=== PATIENT | female | born 1960 | race Caucasian/White ===

== ENCOUNTER 2017-02-27 18:44 | Emergency (ER) | payer OTHER ==
[~2017-02-27] VITALS: Ht 167.6 cm; Wt 70.0 kg
[2017-02-27 19:19] VITALS: BP 134/75; PULSE 71; RESP 16; TEMP 97.9; O2SAT 98
[2017-02-27] MEDS ORDERED: ALPR.5 PO (19:26)
[2017-02-27] MEDS ORDERED: PRAV10TA PO (19:26)
[2017-02-27] MEDS ORDERED: LEXA5TAB PO (19:26)
[2017-02-27] MEDS ORDERED: NALT50TA3 PO (19:26)
[2017-02-27] MEDS ORDERED: TRAZ50TA12 PO (19:26)
--- NOTE | 2017-02-27 19:26 | PD ---
HPI Chief Complaint: Psychiatric Symptoms Time Seen by Provider: 19:18 Travel History International Travel<30 days: No Contact w/Intl Traveler<30days: No Traveled to known affect area: No History of Present Illness HPI The patient was seen and examined in the presence of the nurse. This patient presents under police Pitt act. She says that she consumes large amounts of alcohol daily. Denies any other illicit drug use. Her neighbor called the police due to her acting intoxicated. According to the police Pitt act, she made statements to the effect that she wanted to drink so much in order to hurt herself. She denies feeling suicidal now. Symptoms moderately severe. No alleviating factors. Duration 2 hours PFSH Social History Alcohol Use: Yes Tobacco Use: Yes Substance Use: No Allergies-Medications (Allergen,Severity, Reaction): Coded Allergies: No Known Allergies (Unverified , 02/27/17) Reported Meds & Prescriptions Reported Meds & Active Scripts Active Reported Xanax (Alprazolam) 0.5 Mg Tab 0.5 Mg PO Q6H PRN Naltrexone (Naltrexone HCl) 50 Mg Tab 50 Mg PO DAILY Lexapro (Escitalopram Oxalate) 5 Mg Tab 5 Mg PO DAILY Pravastatin 10 Mg Tab 10 Mg PO DAILY Trazodone (Trazodone HCl) 50 Mg Tab 25 Mg PO HS Review of Systems General / Constitutional: No: Fever Eyes: No: Visual changes HENT: No: Headaches Cardiovascular: No: Chest Pain or Discomfort Respiratory: No: Shortness of Breath Gastrointestinal: No: Abdominal Pain Genitourinary: No: Dysuria Musculoskeletal: No: Pain Skin: No Rash Neurologic: No: Weakness Psychiatric: Positive: Depression, Suicidal Ideations, Substance Abuse Endocrine: No: Polydipsia Hematologic/Lymphatic: No: Easy Bruising Physical Exam Narrative GENERAL: Disheveled , well-developed patient who is acting intoxicated . SKIN: Focused skin assessment reveals no rash and nodules. Skin is Warm and dry. HEAD: Atraumatic. Normocephalic. EYES: Pupils equal and round. No scleral icterus. No injection or drainage. ENT: No nasal bleeding or discharge. Mucous membranes pink and moist. NECK: Trachea midline. No JVD. CARDIOVASCULAR: Regular rate and rhythm. No murmur appreciated. RESPIRATORY: No accessory muscle use. Clear to auscultation. Breath sounds equal bilaterally. GASTROINTESTINAL: Abdomen soft, non-tender, nondistended. Hepatic and splenic margins not palpable. MUSCULOSKELETAL: No obvious deformities. No clubbing. No cyanosis. No edema. NEUROLOGICAL: Awake and alert. No obvious cranial nerve deficits. Motor grossly within normal limits. Slight slurring of speech. PSYCHIATRIC: Very animated mood and affect; insight and judgment poor . Data Data Last Documented VS Vital Signs Date Time Temp Pulse Resp B/P Pulse Ox O2 Delivery O2 Flow Rate FiO2 02/27/17 19:19 97.9 71 16 134/75 98 Orders Complete Blood Count With Diff (02/27/17 19:21) Basic Metabolic Panel (Bmp) (02/27/17 19:21) Valproic Acid (Depakene) (02/27/17 19:21) Psych Screen (02/27/17 19:21) Drug Screen, Random Urine (02/27/17 19:21) Alcohol (Ethanol) (02/27/17 19:21) Restraints Non-Violent BLANQUITA.Q3H (02/27/17 20:25) Lorazepam Inj (Ativan Inj) (02/27/17 20:45) Lorazepam Inj (Ativan Inj) (02/27/17 20:45) Labs Laboratory Tests Test 02/27/17 19:25 White Blood Count 4.2 TH/MM3 Red Blood Count 4.03 MIL/MM3 Hemoglobin 13.1 GM/DL Hematocrit 37.7 % Mean Corpuscular Volume 93.5 FL Mean Corpuscular Hemoglobin 32.5 PG Mean Corpuscular Hemoglobin 34.8 % Concent Red Cell Distribution Width 13.5 % Platelet Count 218 TH/MM3 Mean Platelet Volume 7.3 FL Neutrophils (%) (Auto) 45.9 % Lymphocytes (%) (Auto) 41.1 % Monocytes (%) (Auto) 12.4 % Eosinophils (%) (Auto) 0.4 % Basophils (%) (Auto) 0.2 % Neutrophils # (Auto) 1.9 TH/MM3 Lymphocytes # (Auto) 1.7 TH/MM3 Monocytes # (Auto) 0.5 TH/MM3 Eosinophils # (Auto) 0.0 TH/MM3 Basophils # (Auto) 0.0 TH/MM3 CBC Comment DIFF FINAL Differential Comment Sodium Level 139 MEQ/L Potassium Level 3.9 MEQ/L Chloride Level 100 MEQ/L Carbon Dioxide Level 28.5 MEQ/L Anion Gap 11 MEQ/L Blood Urea Nitrogen 7 MG/DL Creatinine 0.65 MG/DL Estimat Glomerular Filtration 95 ML/MIN Rate Random Glucose 88 MG/DL Calcium Level 8.4 MG/DL Urine Opiates Screen NEG Urine Barbiturates Screen NEG Valproic Acid (Depakene) Level 46 MCG/ML Urine Amphetamines Screen NEG Urine Benzodiazepines Screen NEG Urine Cocaine Screen NEG Urine Cannabinoids Screen NEG Ethyl Alcohol Level 412 MG/DL MDM Medical Decision Making Medical Screen Exam Complete: Yes Emergency Medical Condition: Yes Medical Record Reviewed: Yes Differential Diagnosis Alcohol intoxication, adjustment disorder, depression, suicidal ideation Narrative Course I have reviewed the patient's electronic medical record. Patient has no prior ER visits here I've ordered psychiatric evaluation as she is here under the Pitt act. Toxicology screen is negative Alcohol level is 412 CBC is normal Metabolic profile is normal Patient will have a lot of sobering up to do. She is quite intoxicated. I had to give her injection of 2 mg IM Ativan as she was so out of control. She also required leather restraints for her own safety. She will be given some sobering up time and then will get psychiatric evaluation. She is is medically stable as can be made. Disposition will be per psychiatry after sobering up and screening. Diagnosis Primary Impression: Suicidal ideation Additional Impression: Alcohol intoxication in active alcoholic Qualified Code: F10.220 - Alcohol intoxication in active alcoholic, uncomplicated Joaquin Preciado MD Feb 27, 2017 19:26
[2017-02-27 20:31] LABS: AUTOMATED NEUTROPHIL # 1.9 TH/MM3 (1.8-7.7); BASOPHIL % 0.2 % (0.0-2.0); EOSINOPHIL % 0.4 % (0.0-4.0); HEMATOCRIT 37.7 % (35.0-46.0); HEMO FLAGS DIFF FINAL; LYMPH % 41.1 % (9.0-44.0); LYMPHOCYTE # 1.7 TH/MM3 (1.0-4.8); MEAN CELL VOLUME 93.5 FL (80.0-100.0); MEAN CORPUSCULAR HEMOGLOBIN 32.5 PG (27.0-34.0); MEAN CORPUSCULAR HGB CONC 34.8 % (32.0-36.0); MONO % 12.4 % (0.0-8.0); NEUT % 45.9 % (16.0-70.0); PLATELET COUNT 218 TH/MM3 (150-450); RED BLOOD COUNT 4.03 MIL/MM3 (4.00-5.30); RED CELL DISTRIBUTION WIDTH 13.5 % (11.6-17.2); WHITE BLOOD COUNT 4.2 TH/MM3 (4.0-11.0)
[2017-02-27 20:43] LABS: AMPHETAMINE, URINE NEG (NEG); BARBITURATES, URINE NEG (NEG); COCAINE, URINE NEG (NEG)
[2017-02-27] MEDS ORDERED: LORazepam 2 MG/ML VIAL IV PUSH ONE (20:45)
[2017-02-27] MEDS ORDERED: LORazepam 2 MG/ML VIAL IM ONE (20:45)
[2017-02-27 20:55] LABS: BICARBONATE 28.5 MEQ/L (21.0-32.0); POTASSIUM 3.9 MEQ/L (3.5-5.1)
[2017-02-27 21:30] VITALS: BP 144/85; PULSE 95; RESP 18; O2SAT 97
[2017-02-28 06:01] VITALS: BP 126/72; PULSE 97; RESP 19; O2SAT 94
[2017-02-28] MEDS ORDERED: LORazepam 2 MG TAB PO ONE (10:00)
[2017-02-28 10:09] VITALS: BP 139/90; PULSE 113; TEMP 98.6; O2SAT 95
--- NOTE | 2017-02-28 14:44 | PD ---
History of Present Illness Chief Complaint: Psychiatric Symptoms Time Seen by Provider: 14:15 Travel History International Travel<30 Days: No Contact w/Intl Traveler<30days: No Known affected area: No Legal Status Legal Status: Pitt Act Pitt Act Signed By: Edith Groves History of Present Illness: History of Present Illness HPI The patient is a 56 year old female with history of alcohol dependence who presents to ED under a BA initiated by JAMES. As per the a friend called the police after she found the patient intoxicated. It alleges that she informed the police that she had been drinking in an attempt to hurt herself. She reports a long hx of alcohol abuse and dependence with a 19 year period of sobriety. She relapsed approximately 1 year ago and has been binge drinking. She denies that she drinks such large quantities. BAL on arrival is 412. EMR is reviewed. No prior contact with [facility] psychiatry dept. Patient is seen in [facility] pod. At this time she is clinically sober. Speech is clear , logical and she ambulates well. She has a tremor of her hands. There is no psychosis and no kelly. She denies any suicidal ideation, intent or plan and is future oriented. She will be contacting her insurance company to seek rehabilitation services. PFSH Past Medical History Depression: Yes High Cholesterol: Yes Psychiatric: Yes Tetanus Vaccination: < 5 Years ?: Not Psychiatric History Psychiatric History Hx Psychiatric Treatment: None History of Inpatient Treatment: No Guns or firearms in home: No Social History female. Lives with and 2 children ages 11 years and 15 years. Hx Alcohol Use: Yes Hx Tobacco Use: Yes Hx Substance Use: No Substance Use Type: Alcohol Hx of Substance Use Treatment: Yes ([facility]) Family Psychiatric History None Allergies-Medications (Allergen,Severity, Reaction): Coded Allergies: No Known Allergies (Unverified , 02/27/17) Reported Meds & Prescriptions Reported Meds & Active Scripts Active Reported Xanax (Alprazolam) 0.5 Mg Tab 0.5 Mg PO Q6H PRN Naltrexone (Naltrexone HCl) 50 Mg Tab 50 Mg PO DAILY Lexapro (Escitalopram Oxalate) 5 Mg Tab 5 Mg PO DAILY Pravastatin 10 Mg Tab 10 Mg PO DAILY Trazodone (Trazodone HCl) 50 Mg Tab 25 Mg PO HS Review of Systems Except as stated in HPI: all other systems reviewed are Neg Exam Alert: Yes [place]: Person (ox4) Mood: Calm Affect: Appropriate Speech: Clear, Logical Eye Contact: Normal Memory Intact: Comment (notimpaired) Hallucinations: Other (negative) Delusions: No Suicidal: Ideation (denies any ) Homicidal: Ideation (denies any) Insight/Judgement Fair. Not impaired. MDM Medical Decision Making Medical Record Reviewed: Yes Assessment/Plan 56 year old female with no psychiatric hx and hx of alcohol dependence with relapse after 19 years of sobriety. patietn intoxicated when the BA was filed. At this time the patietn is clincially sober and there is no suicidal or homicidal ideation, intent or plan. She does not meet criteria and is requesting discharge in order to pursue outpatietn substance abuse treatment thru her insurance. BA released. psychoeducation is provided. Orders Complete Blood Count With Diff (02/27/17 19:21) Basic Metabolic Panel (Bmp) (02/27/17 19:21) Valproic Acid (Depakene) (02/27/17 19:21) Psych Screen (02/27/17 19:21) Drug Screen, Random Urine (02/27/17 19:21) Alcohol (Ethanol) (02/27/17 19:21) Restraints Non-Violent BLANQUITA.Q3H (02/27/17 20:25) Lorazepam Inj (Ativan Inj) (02/27/17 20:45) Lorazepam Inj (Ativan Inj) (02/27/17 20:45) Lorazepam (Ativan) (02/28/17 10:00) Diet Regular Basic (02/28/17 Lunch) Diet Regular Basic (02/28/17 Dinner) Results Vital Signs Date Time Temp Pulse Resp B/P Pulse Ox O2 Delivery O2 Flow Rate FiO2 02/28/17 10:09 98.6 113 139/90 95 Room Air 02/28/17 06:01 97 19 126/72 94 Room Air 02/27/17 21:30 95 18 144/85 97 Room Air 02/27/17 19:19 97.9 71 16 134/75 98 Laboratory Tests Test 02/27/17 19:25 White Blood Count 4.2 Red Blood Count 4.03 Hemoglobin 13.1 Hematocrit 37.7 Mean Corpuscular Volume 93.5 Mean Corpuscular Hemoglobin 32.5 Mean Corpuscular Hemoglobin 34.8 Concent Red Cell Distribution Width 13.5 Platelet Count 218 Mean Platelet Volume 7.3 Neutrophils (%) (Auto) 45.9 Lymphocytes (%) (Auto) 41.1 Monocytes (%) (Auto) 12.4 Eosinophils (%) (Auto) 0.4 Basophils (%) (Auto) 0.2 Neutrophils # (Auto) 1.9 Lymphocytes # (Auto) 1.7 Monocytes # (Auto) 0.5 Eosinophils # (Auto) 0.0 Basophils # (Auto) 0.0 CBC Comment DIFF FINAL Differential Comment Sodium Level 139 Potassium Level 3.9 Chloride Level 100 Carbon Dioxide Level 28.5 Anion Gap 11 Blood Urea Nitrogen 7 Creatinine 0.65 Estimat Glomerular Filtration 95 Rate Random Glucose 88 Calcium Level 8.4 Urine Opiates Screen NEG Urine Barbiturates Screen NEG Valproic Acid (Depakene) Level 46 Urine Amphetamines Screen NEG Urine Benzodiazepines Screen NEG Urine Cocaine Screen NEG Urine Cannabinoids Screen NEG Ethyl Alcohol Level 412 Diagnosis Primary Impression: Alcohol intoxication Additional Impression: Alcohol dependence Med/ Other Pt Specific Info: No Meds Exist/No RX given Disposition: 01 DISCHARGE HOME Condition: Stable Problem Qualifiers Primary Impression: Alcohol intoxication Qualified Code: F10.120 - Alcohol intoxication, uncomplicated Additional Impression: Alcohol dependence Qualified Code: F10.20 - Uncomplicated alcohol dependence Ayla aBrber Feb 28, 2017 14:44
[2017-02-28] MEDS ORDERED: LORazepam 1 MG TAB PO ONE (15:00)
== END 2017-02-28 16:10 | disposition home or self-care (01) ==
LOC: NEPE 18:44 → NEPJ 02-28 16:10
DX: R45.851 Suicidal ideations (principal); F10.220 Alcohol dependence with intoxication, uncomplicated; E78.00 Pure hypercholesterolemia, unspecified; Z72.0 Tobacco use; Z86.59 Personal history of other mental and behavioral disorders
CPT/HCPCS: 80048; 80164; 80307; 85025; 96372; 99285; J2060

== ENCOUNTER 2017-09-12 20:43 | Emergency (ER) | payer OTHER ==
[~2017-09-12] VITALS: Ht 167.6 cm; Wt 70.0 kg
[~2017-09-12 20:43] MED LIST: ALPR.5 PO; LEXA5TAB PO; NALT50TA3 PO; PRAV10TA PO; TRAZ50TA12 PO
[2017-09-12 20:52] VITALS: BP 129/88; PULSE 84; RESP 19; TEMP 98.7; O2SAT 100
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
[2017-09-12] MEDS ORDERED: TETANUS/DIPHTHERIA TOXOID ADULT 0.5 ML VIAL IM ONE (21:15)
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
== END 2017-09-12 21:59 ==
LOC: NEPD 20:43
DX: S09.90XA Unspecified injury of head, initial encounter (principal); H11.32 Conjunctival hemorrhage, left eye; S50.812A Abrasion of left forearm, initial encounter; S50.811A Abrasion of right forearm, initial encounter; F32.9 Major depressive disorder, single episode, unspecified; E78.00 Pure hypercholesterolemia, unspecified; E07.9 Disorder of thyroid, unspecified; V49.40XA Driver injured in collision with unspecified motor vehicles in traffic accident, initial encounter; Z23 Encounter for immunization
CPT/HCPCS: 70450; 72125; 90471; 90714

== ENCOUNTER 2017-09-18 21:47 | Emergency (ER) | payer OTHER ==
[2017-09-18 21:58] VITALS: BP 132/76; PULSE 80; RESP 16; O2SAT 98
--- NOTE | 2017-09-18 22:29 | PD ---
HPI Chief Complaint: Alcohol/Drug Intoxication Time Seen by Provider: 22:06 Travel History International Travel<30 days: No Contact w/Intl Traveler<30days: No Traveled to known affect area: No History of Present Illness HPI Patient comes in under Jimenez's act for alcohol intoxication. Patient is intoxicated and states she only drank a little bit denies any complaints or concerns. Denies anything making it better or worse. PFSH Past Medical History Depression: Yes High Cholesterol: Yes Diminished Hearing: No Psychiatric: Yes Immunizations Current: Yes Thyroid Disease: Yes ?: Unknown Past Surgical History Other Surgery: Yes (BREAT AUGMENTATION) Social History Alcohol Use: Yes Tobacco Use: Yes Substance Use: No Allergies-Medications (Allergen,Severity, Reaction): Coded Allergies: No Known Allergies (Unverified , 02/27/17) Reported Meds & Prescriptions Reported Meds & Active Scripts Active Reported Xanax (Alprazolam) 0.5 Mg Tab 0.5 Mg PO Q6H PRN Naltrexone (Naltrexone HCl) 50 Mg Tab 50 Mg PO DAILY Lexapro (Escitalopram Oxalate) 5 Mg Tab 5 Mg PO DAILY Pravastatin 10 Mg Tab 10 Mg PO DAILY Trazodone (Trazodone HCl) 50 Mg Tab 25 Mg PO HS Review of Systems ROS Limitations: Intoxication Except as stated in HPI: all other systems reviewed are Neg Physical Exam Exam Limitations: Intoxication Narrative GENERAL: Well-developed, well nourished, in no acute distress, and non-ill appearing. SKIN: Focused skin assessment warm and dry. HEAD: Atraumatic. Normocephalic. EYES: Pupils equal and round. EOMI. No scleral icterus. No injection or drainage. ENT: No nasal bleeding or discharge. Mucous membranes pink and moist. NECK: Trachea midline. Supple. No nuclear rigidity. CARDIOVASCULAR: Regular rate and rhythm. No murmur appreciated. RESPIRATORY: No accessory muscle use. No respiratory distress. Clear to auscultation. Breath sounds equal bilaterally. MUSCULOSKELETAL: No obvious deformities. No clubbing. No cyanosis. No edema. Full range of motion. NEUROLOGICAL: Awake and alert. No obvious cranial nerve deficits. Motor grossly within normal limits. Slurred speech. Data Data Last Documented VS Vital Signs Date Time Temp Pulse Resp B/P (MAP) Pulse Ox O2 Delivery O2 Flow Rate FiO2 09/19/17 06:14 78 18 143/83 (103) 98 09/18/17 21:58 Room Air Orders Orders Ed Discharge Order (09/19/17 06:16) MDM Medical Decision Making Medical Screen Exam Complete: Yes Emergency Medical Condition: No Differential Diagnosis Alcohol intoxication, alcohol abuse, alcohol dependence, other Narrative Course Patient was seen and examined. Patient will be monitored in the emergency department until clinically sober and able to ambulate on their own or until a sober responsible adult comes to pick them up. RN is aware of this. Patient in no obvious distress upon re-evaluation. Patient ambulated without difficulty out of ED at discharge. Diagnosis Primary Impression: Alcohol intoxication Qualified Codes: F10.920 - Alcohol use, unspecified with intoxication, uncomplicated Referrals: [facility] Instructions: Abuse of Alcohol (ED), General Instructions Additional Instructions: Follow-up with your primary care physician and/or [facility] for detox. Return to the emergency department if symptoms get worse. Disposition: 01 DISCHARGE HOME Condition: Stable Fredy Clements Sep 18, 2017 22:29
[2017-09-19 06:14] VITALS: BP 143/83
== END 2017-09-19 06:22 | disposition home or self-care (01) ==
LOC: NEPD 21:47
DX: F10.129 Alcohol abuse with intoxication, unspecified (principal); F32.9 Major depressive disorder, single episode, unspecified; E78.00 Pure hypercholesterolemia, unspecified; E07.9 Disorder of thyroid, unspecified; Z79.899 Other long term (current) drug therapy; Z72.0 Tobacco use
CPT/HCPCS: 99281